=== PATIENT | female | born 1955 | race Caucasian/White ===

== ENCOUNTER → 2021-03-21 | Day surgery (SDC) | payer MEDICARE, OTHER ==
[~2021-03-21] MED LIST: ADVIL200 M1 PO; TYLENOL #3
--- NOTE | ~2021-03-21 | OP ---
[facility] [address] [place] [address] OPERATIVE REPORT Name: SHLOMO AVILA Room: [facility]#: [id number] Admission: 03/21/21 Attend Phys: Fletcher Dueñas Discharge: Date of : 55 Report #: [id number] THIS REPORT FOR: cc: Neema Sweet MD, Emily G. MD Patterson,Fletcher Marie MD ~ DOC #: [id number] Fletcher Dueñas MD DATE OF SURGERY: 03/21/2021 PREOPERATIVE DIAGNOSIS: Left axillary mass, 2.5 cm. POSTOPERATIVE DIAGNOSIS: Left axillary mass, 2.5 cm. OPERATION: Excision of left axillary mass, 2.5 cm. SURGEON: Fletcher Dueñas MD. ANESTHESIA: General. ESTIMATED BLOOD LOSS: Minimal. SPECIMENS: Left axillary mass. DESCRIPTION OF PROCEDURE: After informed consent was obtained, the patient was brought to the operating room and placed supine. SCDs were placed and working, preoperative antibiotics were administered, general anesthesia was induced. The left axilla was prepped and draped in the usual sterile fashion. Elliptical 2.5 cm incision was made around the lesion. Cautery dissection was made down to healthy subcutaneous fat. The mass was fully excised. The skin was then reapproximated with interrupted 4-0 Monocryl. Sterile dressings were applied. COMPLICATIONS: None. DISPOSITION: The patient was taken to recovery in satisfactory condition. Fletcher Dueñas MD JDP/LAYNE By: 1151 1210Fletcher Dueñas MD /nt
[2021-03-21 06:51] LABS: HEMATOCRIT 42.1 % (37.0-47.0); HEMOGLOBIN 14.5 gm/dL (12.0-15.0); MCH 31.9 pg (26.0-34.0); MCHC 34.5 g/dL (28.0-37.0); MCV 92.5 fL (80.0-100.0); MPV 7.5 fl. (7.2-11.1); RBC 4.55 mil/uL (4.20-5.00); RDW-CV 12.9 % (10.5-14.5); WBC 6.3 thou/uL (4.0-11.0)
[2021-03-21 06:54] LABS: CALCIUM 9.3 mg/dL (8.5-10.1); CREATININE 0.6 mg/dL (0.6-1.3)
--- NOTE | 2021-03-21 16:42 | EKG ---
[place] [address] ELECTROCARDIOGRAM REPORT Name: SHLOMO AVILA Room: [facility]#: [id number] Admission: 03/21/21 Attend Phys: Fletcher Romero Discharge: Date of : 55 Date of Service: 03/21/21 0641 Report #: [id number] THIS REPORT FOR: //name// [facility] Test Date: 2021-03-21 Test Time: 06:41:54 Pat Name: SHLOMO AVILA Department: Room: Gender: Physician Office Rep: Eliza ANDERSON RN : 1955 Requested By: Fletcher Dueñas Order Number: [id number] MD: Joaquin Calzada Measurements Intervals [place] Rate: 72 P: 60 DC: 167 QRS: -8 QRSD: 102 T: 27 QT: 380 QTc: 416 Interpretive Statements Sinus rhythm Inferior and anterolateral ST segment depression; Ischemia must be considered No previous ECG available for comparison Electronically Signed On 03-21-2021 16:42:25 CDT by Joaquin Calzada [email or web address] <ELECTRONICALLY SIGNED> By: Joaquin Calzada MD, [facility] 03/21/21 1642 0641 0641 Joaquin Calzada MD, [facility] /EPI
--- NOTE | 2021-03-25 18:06 | PATH ---
[address] [address] PATHOLOGY RPT PROCEDURE Name: SHLOMO AVILA Room: [facility].#: [id number] Admission: 03/21/21 Date of : 55 Discharge: Report #: [id number] Path Case #: [id number] [facility] Accession Number: [id number] . 01 Material submitted: . axilla - LEFT AXILLARY MASS. Modifiers: left . 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 (PAMELLA:perlita; 03/25/2021) [facility] 03/25/2021 1319 Local . 02 Electronically signed: . Andrea Woodward MD, Pathologist NPI- [id number] . 01 Gross description: . Received in formalin labeled "Yvonne, Shlomo, left axillary mass" is a previously opened koo-brown cystic structure measuring 2.5 x 1.8 x 1.8 cm. There is an attached irregular portion of koo-white skin on one aspect measuring 2.4 x 1.7 x 0.4 cm. Upon sectioning, the cut surface is yellow and lobulated with koo-brown amorphous material present. Management Sme tissue is submitted in cassette A1. ([facility]; 03/22/2021) [facility] 03/25/2021 1318 Local . 02 Pathologist provided ICD-10: L72.0 . 02 CPT . 750375 Specimen Comment: A courtesy copy of this report has been sent to [phone], [phone] Specimen Comment: [phone] Specimen Comment: Report sent to / DR JEFFERSON Performed at: [facility] [address], [place], [place] [id number] MD Gerard Lieberman MD Phone: [phone] Performed at: [address] [address] [address], [place], [place] [id number] MD Andrea Woodward MD Phone: [phone]
== END | disposition home or self-care (01) ==
LOC: M.SUR 06:04
PROVIDERS: ATTEND Surgery
DX: L72.0 Epidermal cyst (principal); M79.622 Pain in left upper arm; Z88.6 Allergy status to analgesic agent